=== PATIENT | female | born 2000 | race Caucasian/White ===

== ENCOUNTER 2020-04-29 18:49 | Emergency (ER) | payer MEDICAID ==
--- NOTE | 2020-04-29 20:48 | EDM.PDOC ---
ED HPI GENERAL MEDICAL PROBLEM - General Chief Complaint: Genitourinary Problem Stated Complaint: BURNING AND FREQUENT URINATION Time Seen by Provider: 04/29/20 19:21 Source of Information: Reports: Patient, RN Notes Reviewed History Limitations: Reports: No Limitations - History of Present Illness INITIAL COMMENTS - FREE TEXT/NARRATIVE: Patient is a 19-year-old female presenting to the emergency department with complaints of pelvic pressure, burning with urination and abnormal vaginal discharge which she describes as "limegreen". Patient states that about 1 week ago she had sexual intercourse with an individual who recently told her that he was treated for a sexually transmitted disease. She is not sure which disease it was, however states that he had discharge from his urethra. States he was given a shot and pills. Based on this he was likely treated for gonorrhea/, chlamydia. Patient symptoms began approximately 3 days ago. She is had no fever, chills, nausea, vomiting, or diarrhea. She does not think she could be but she is not sure. She is not currently on control. Lower Abdomen Pain Score (Numeric/FACES): 10 - Related Data Allergies Allergy/AdvReac Type Severity Reaction Status Date / Time trazodone Allergy Hives Verified 04/29/20 19:08 Home Meds: Home Meds . 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 Denies: Fever, Chills, Weakness HEENT: Reports: No Symptoms Respiratory: Reports: No Symptoms Cardiovascular: Reports: No Symptoms Endocrine: Reports: No Symptoms GI/Abdominal: Reports: No Symptoms. Denies: Abdominal Pain, Diarrhea, Nausea, Vomiting : Reports: Discharge, Dysuria, Pain (Pelvic pressure). Denies: Hematuria, Irregular Menses Musculoskeletal: Reports: No Symptoms Skin: Reports: No Symptoms Neurological: Reports: No Symptoms Psychiatric: Reports: No Symptoms Hematologic/Lymphatic: Reports: No Symptoms Immunologic: Reports: No Symptoms ED EXAM, RENAL/ - Physical Exam Exam: See Below General Appearance: Alert, WD/WN, No Apparent Distress Respiratory/Chest: No Respiratory Distress, Lungs Clear, Normal Breath Sounds, No Accessory Muscle Use, Chest Non-Tender Cardiovascular: Normal Peripheral Pulses, Regular Rate, Rhythm, No Edema, No Gallop, No JVD, No Murmur, No Rub GI/Abdominal: Normal Bowel Sounds, Soft, Non-Tender, No Organomegaly, No Distention, No Abnormal Bruit, No Mass (Female) Exam: Normal External Exam, Normal Speculum Exam. No: Cervical Fluid, Cervical Lesions, Cervix Motion Tenderness, Vaginal Bleeding, Vaginal Discharge Neurological: Alert, Oriented, CN II-XII Intact, Normal Cognition, Normal Gait, Normal Reflexes, No Motor/Sensory Deficits Psychiatric: Normal Affect, Normal Mood Skin Exam: Warm, Dry, Intact, Normal Color, No Rash Course - Vital Signs Last Recorded V/S: Last Vital Signs Temp 97.9 F 04/29/20 19:04 Pulse 99 04/29/20 19:04 Resp 16 04/29/20 19:04 BP 121/81 04/29/20 19:04 Pulse Ox 98 04/29/20 19:04 - Orders/Labs/Meds Labs: Laboratory Tests 04/29/20 04/29/20 04/29/20 Range/Units 19:00 19:00 20:35 Urine Color Yellow (Yellow) Urine Appearance Clear (Clear) Urine pH 6.0 (5.0-8.0) Ur Specific [place] 1.025 (1.005-1.030) Urine Protein Negative (Negative) Urine Glucose (UA) Negative (Negative) Urine Ketones Negative (Negative) Urine Occult Blood 1+ H (Negative) Urine Nitrite Negative (Negative) Urine Bilirubin Negative (Negative) Urine Urobilinogen 0.2 (0.2-1.0) Ur Leukocyte Esterase Negative (Negative) Urine RBC 10-20 H (0-5) /hpf Urine WBC 0-5 (0-5) /hpf Ur Squamous Epith Cells 20-30 H (0-5) /hpf Urine Bacteria Rare (FEW) /hpf Urine Mucus Rare (FEW) /hpf Urine HCG, Qual Negative (NEGATIVE) C trachomatis DNA (PCR) Not detected N gonorrhoeae DNA (PCR) Not detected - Re-Assessments/Exams Free Text/Narrative Re-Assessment/Exam: Patient is a 19-year-old female presenting to the emergency department with complaints of pelvic pressure, burning with urination, and abnormal vaginal discharge which she describes as "limegreen" in color. She states that she had intercourse with an individual 1 week ago who later notified her that he was experiencing urethral drainage and tested positive for sexually transmitted disease. She is uncertain what disease it was, however states that he received a shot and a pill indicating it was likely gonorrhea or chlamydia. I have ordered urinalysis, urine hCG, wet prep, and a GC chlamydia. Wet prep and GC c hlamydia will be collected during pelvic exam. 04/29/20 22:18 Urinalysis was negative for infection. Wet prep, GC/Chlamydia were all negative. Pelvic exam revealed no cervical motion or adnexal tenderness. HCG was negative. Pt advised to monitor s/s and f/u if do not improve over the next few days. Discharge instructions as documented. Departure - Departure Time of Disposition: 22:47 Disposition: Home, Self-Care 01 Condition: Good Clinical Impression: Dysuria, Vaginal discharge - Discharge Information *PRESCRIPTION DRUG MONITORING PROGRAM REVIEWED*: No *COPY OF PRESCRIPTION DRUG MONITORING REPORT IN PATIENT CHIQUI: No Instructions: Dysuria Referrals: PCP,None [Primary Care Provider] - Forms: ED Department Discharge Additional Instructions: You were seen in the emergency department today for burning with urination, abnormal vaginal discharge and pelvic pressure. Your workup included urinalysis, test, a wet prep, and gonorrhea and chlamydia testing. Your workup was found to be normal. You do not have a urinary tract infection. you are not , you do not have gonnorea, chlamydia, trichomoniasis, yeast infection, or bacterial vaginosis. Recommend that you monitor your symptoms. If they do not improve over the next few days or you experience any new or worsening symptoms of concern, please follow-up in the clinic or return to the ER as needed. Sepsis Event Note (ED) - Evaluation Sepsis Screening Result: No Definite Risk
[2020-04-29 22:17] LABS: C. TRACHOMATIS BY PCR NOT DETECTED; N. GONORRHOEAE BY PCR NOT DETECTED
== END 2020-04-29 22:54 | disposition home or self-care (01) ==
LOC: JD.ED 18:49
DX: N89.8 Other specified noninflammatory disorders of vagina (principal); R30.0 Dysuria; J45.909 Unspecified asthma, uncomplicated; Z88.8 Allergy status to other drugs, medicaments and biological substances
CPT/HCPCS: 81001; 81025; 87210; 87491; 87591; 87808; 99282; 99284

== ENCOUNTER 2021-01-25 16:39 | Inpatient (IN) | payer MEDICAID ==
[2021-01-25] MEDS ORDERED: Lidocaine 1% 50 ML MDV INJECT PRN (17:40)
[2021-01-25] MEDS ORDERED: Nalbuphine 10 MG/1 ML Vial IVPUSH PRN (17:40)
[2021-01-25] MEDS ORDERED: Sodium Chloride 0.9% 10 ML Syringe FLUSH PRN (17:40)
[2021-01-25] MEDS ORDERED: Oxytocin/Lactated Ringers 10 UNIT/1,000 ML BAG IV SCH (17:45)
[2021-01-25] MEDS ORDERED: Ampicillin 2 GM in Sodium Chloride 0.9% 100 ML IV ONE (20:00)
[2021-01-25] MEDS: Lactated Ringers 1,000 ML IV SCH (20:30)
[2021-01-25] MEDS: Oxytocin/Lactated Ringers 10 UNIT/1,000 ML BAG IV SCH (22:27)
[2021-01-25] MEDS ORDERED: diphenhydrAMINE 50 MG/ML SDV IVPUSH PRN (23:03)
[2021-01-26] MEDS: Ampicillin 1 GM in Sodium Chloride 0.9% 100 ML IV SCH ×5 (00:34→20:23)
[2021-01-26] MEDS ORDERED: Acetaminophen 325 MG Tab PO PRN (03:26)
[2021-01-26] MEDS ORDERED: diphenhydrAMINE 50 MG/ML SDV IVPUSH PRN (09:09)
[2021-01-26] MEDS ORDERED: ePHEDrine 50 MG/ML SDV IVPUSH PRN (09:09)
[2021-01-26] MEDS ORDERED: fentaNYL 100 MCG/2 ML SDV EPIDUR PRN (09:09)
[2021-01-26] MEDS ORDERED: Bupivacaine/fentaNYL/NS 100 ML Bag EPIDUR PRN (09:09)
[2021-01-26] MEDS: Lactated Ringers 1,000 ML IV SCH ×2 (09:34→11:09)
--- NOTE | 2021-01-26 09:40 | PCM.PREANE ---
Preanesthetic Assessment - Procedure Proposed Procedure: Epidural - Anesthesia/Transfusion/Family Hx Anesthesia History: No Prior Anesthesia Family History of Anesthesia Reaction: No Transfusion History: No Prior Transfusion(s) - Review of Systems General: Fatigue, Malaise Pulmonary: No Symptoms Cardiovascular: No Symptoms Gastrointestinal: Abdominal Pain (labor) Neurological: No Symptoms Other: Reports: None - Physical Assessment Vital Signs: Last Vital Signs Temp 37.4 C 01/25/21 17:04 Pulse 68 01/26/21 07:30 Resp 15 01/25/21 17:00 BP 124/73 01/26/21 06:02 Pulse Ox 98 01/25/21 17:00 Height: 1.63 m Weight: 102.058 kg ASA Class: 2 Mental Status: Alert & Oriented x3 Airway Class: Mallampati = 2 Thyro-Mental Finger Breadths: 2 Mouth Opening Finger Breadths: 2 ROM/Head Extension: Full Lungs: Clear to Auscultation, Normal Respiratory Effort Cardiovascular: Regular Rate, Regular Rhythm - Lab Values: Laboratory Last Values WBC 9.72 K/mm3 (3.98-10.04) 01/25/21 18:08 RBC 3.86 M/mm3 (3.98-5.22) L 01/25/21 18:08 Hgb 11.6 gm/dl (11.2-15.7) 01/25/21 18:08 Hct 34.7 % (34.1-44.9) 01/25/21 18:08 MCV 89.9 fl (79.4-94.8) 01/25/21 18:08 MCH 30.1 pg (25.6-32.2) 01/25/21 18:08 MCHC 33.4 g/dl (32.2-35.5) 01/25/21 18:08 RDW Std Deviation 43.2 fL (36.4-46.3) 01/25/21 18:08 Plt Count 252 K/mm3 (182-369) 01/25/21 18:08 MPV 9.4 fl (9.4-12.3) 01/25/21 18:08 Neut % (Auto) 66.5 % (34.0-71.1) 01/25/21 18:08 Lymph % (Auto) 20.6 % (19.3-51.7) 01/25/21 18:08 [place] % (Auto) 8.8 % (4.7-12.5) 01/25/21 18:08 Eos % (Auto) 3.2 (0.7-5.8) 01/25/21 18:08 Baso % (Auto) 0.3 % (0.1-1.2) 01/25/21 18:08 Neut # (Auto) 6.46 K/mm3 (1.56-6.13) H 01/25/21 18:08 Lymph # (Auto) 2.00 K/mm3 (1.18-3.74) 01/25/21 18:08 [place] # (Auto) 0.86 K/mm3 (0.24-0.36) H 01/25/21 18:08 Eos # (Auto) 0.31 K/mm3 (0.04-0.36) 01/25/21 18:08 Baso # (Auto) 0.03 K/mm3 (0.01-0.08) 01/25/21 18:08 Urine Opiates Screen Negative (QCKWNL=614) 01/25/21 18:45 Ur Buprenorphine Scrn Negative (CUTOFF=10) 01/25/21 18:45 Ur Oxycodone Screen Negative (BWX4LF=477) 01/25/21 18:45 Urine Methadone Screen Negative (STQETS=678) 01/25/21 18:45 Ur Propoxyphene Screen Negative (BEUYTU=288) 01/25/21 18:45 Ur Barbiturates Screen Negative (QRDSJC=318) 01/25/21 18:45 Ur Tricyclics Screen Negative (RCSSWU=274) 01/25/21 18:45 Ur Phencyclidine Scrn Negative (CUTOFF=25) 01/25/21 18:45 Ur Amphetamine Screen Negative (EDRWXI=392) 01/25/21 18:45 U Methamphetamines Scrn Negative (WQDQYZ=831) 01/25/21 18:45 U Benzodiazepines Scrn Negative (SSJSDK=261) 01/25/21 18:45 U Cocaine Metab Screen Negative (FEMYKK=460) 01/25/21 18:45 U Marijuana (THC) Screen Presumptive positive (CUTOFF=50) H 01/25/21 18:45 RPR Non-reactive (NONREACTIVE) 01/25/21 18:08 SARS-CoV-2 RNA (CALLIE) Negative (NEGATIVE) 01/25/21 18:40 - Allergies Allergies/Adverse Reactions: Allergies Allergy/AdvReac Type Severity Reaction Status Date / Time trazodone Allergy Hives Verified 01/24/21 07:06 - Anesthesia Plan Pre-Op Medication Ordered: None - Acknowledgements Anesthesia Type Planned: Epidural Pt an Appropriate Candidate for the Planned Anesthesia: Yes Alternatives and Risks of Anesthesia Discussed w Pt/Guardian: Yes Pt/Guardian Understands and Agrees with Anesthesia Plan: Yes PreAnesthesia Questionnaire HEENT History: Reports: None Cardiovascular History: Reports: None Respiratory History: Reports: Asthma Gastrointestinal History: Reports: GERD, Other (See Below) Other Gastrointestinal History: Cholestasis Genitourinary History: Reports: None CAR MOVER 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: 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 (See Below) Other OB/BYN History: Cholestasis in Musculoskeletal History: Reports: None Neurological History: Reports: None Psychiatric History: Reports: Bipolar, Depression Endocrine/Metabolic History: Reports: None Hematologic History: Reports: None Immunologic History: Reports: None Oncologic (Cancer) History: Reports: None Dermatologic History: Reports: None - Infectious Disease History Infectious Disease History: Reports: None - Past Surgical History Head Surgeries/Procedures: Reports: None - SUBSTANCE USE Tobacco Use Status *Q: Former Tobacco User Tobacco Use Within Last Twelve Months: Cigarettes Recreational Drug Use History: Yes Recreational Drug Type: Reports: Marijuana/Hashish - HOME MEDS Home Medications: Home Meds Pnv No.95/Ferrous Fum/Folic AC [ Vitamin Tablet] 1 each PO DAILY 01/25/21 [History] - CURRENT (IN HOUSE) MEDS Current Meds: Current Medications Acetaminophen (Acetaminophen 325 Mg Tab) 650 mg PO Q4H PRN PRN Reason: Headache/Pain Last Admin: 01/26/21 03:32 Dose: 650 mg Documented by: Diphenhydramine HCl (Diphenhydramine 50 Mg/Ml Sdv) 25 mg IVPUSH Q6H PRN PRN Reason: Itching Last Admin: 01/25/21 23:21 Dose: 25 mg Documented by: Diphenhydramine HCl (Diphenhydramine 50 Mg/Ml Sdv) 25 mg IVPUSH Q6H PRN PRN Reason: pruritis Ephedrine Sulfate (Ephedrine 50 Mg/Ml Sdv) 5 mg IVPUSH ASDIRECTED PRN PRN Reason: Hypotension Fentanyl (Fentanyl 100 Mcg/2 Ml Sdv) 100 mcg EPIDUR Q3H PRN PRN Reason: Pain Last Admin: 01/26/21 09:18 Dose: 100 mcg Documented by: Fentanyl/Bupivacaine HCl (Bupivacaine/Fentanyl/Ns 100 Ml Bag) 100 ml EPIDUR ASDIRECTED PRN PRN Reason: Pain Last Admin: 01/26/21 09:15 Dose: 100 ml Documented by: Lactated Ringer's (Ringers, Lactated) 1,000 mls @ 100 mls/hr IV ASDIRECTED ANTONIETA Last Admin: 01/26/21 09:34 Dose: 999 mls/hr Documented by: Oxytocin/Lactated Ringer's (Pitocin In Lr 10 Units/1,000 Ml) 10 unit in 1,000 mls @ 12 mls/hr IV TITRATE ANTONIETA; Protocol Last Titration: 01/26/21 08:44 Dose: 10 munits/min, 60 mls/hr Documented by: Oxytocin/Lactated Ringer's (Pitocin In Lr 10 Units/1,000 Ml) 10 unit in 1,000 mls @ 500 mls/hr IV .CONTINUOUS ANTONIETA Ampicillin Sodium 1 gm/ Sodium (Chloride) 100 mls @ 200 mls/hr IV Q4H ANTONIETA Last Admin: 01/26/21 08:05 Dose: 200 mls/hr Documented by: Lidocaine HCl (Lidocaine 1% 50 Ml Mdv) 50 ml INJECT ONETIME PRN PRN Reason: Breakthrough Pain Nalbuphine HCl (Nalbuphine 10 Mg/1 Ml Vial) 10 mg IVPUSH Q2H PRN PRN Reason: Pain Last Admin: 01/26/21 08:38 Dose: 10 mg Documented by: Sodium Chloride (Sodium Chloride 0.9% 10 Ml Syringe) 10 ml FLUSH ASDIRECTED PRN PRN Reason: Keep Vein Open Discontinued Medications Ampicillin Sodium 2 gm/ Sodium (Chloride) 100 mls @ 200 mls/hr IV ONETIME ONE Stop: 01/25/21 20:29 Last Admin: 01/25/21 20:30 Dose: 200 mls/hr Documented by:
[2021-01-26] MEDS: Oxytocin/Lactated Ringers 10 UNIT/1,000 ML BAG IV SCH (11:08)
--- NOTE | 2021-01-26 13:03 | PCM.LDHP ---
L&D History of Present Illness - General Date of Service: 01/25/21 Admit Problem/Dx: Patient Status Order with Admit Dx/Problem 01/25/21 17:40 Patient Status [ADT] Routine Admission Diagnosis/Problem Admission Diagnosis/Problem - History of Present Illness Introduction:: 20 year old at 37w5d here for induction of labor for cholestasis of . 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: 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 (See Below) Other OB/BYN History: Cholestasis in Musculoskeletal History: Reports: None Neurological History: Reports: None Psychiatric History: Reports: Bipolar, Depression Endocrine/Metabolic History: Reports: None Hematologic History: Reports: None Immunologic History: Reports: None Oncologic (Cancer) History: Reports: None Dermatologic History: Reports: None - Infectious Disease History Infectious Disease History: Reports: None - Past Surgical History Head Surgeries/Procedures: Reports: None Social & Family History - Tobacco Use Tobacco Use Status *Q: Former Tobacco User Packs/Tins Daily: 1 Used Tobacco, but Quit: Yes Month/Year Tobacco Last Used: 05/2019 - Caffeine Use Caffeine Use: Reports: None - Recreational Drug Use Recreational Drug Use: Yes Drug Use in Last 12 Months: Yes Recreational Drug Type: Reports: Marijuana/Hashish Other Recreational Drug Type: Pt states she quit Marjuana in May of this year. Pt UDS positive for marijuana. H&P Review of Systems - Review of Systems: Review Of Systems: See Below General: Reports: No Symptoms HEENT: Reports: No Symptoms Pulmonary: Reports: No Symptoms Cardiovascular: Reports: No Symptoms Gastrointestinal: Reports: No Symptoms Genitourinary: Reports: No Symptoms Musculoskeletal: Reports: No Symptoms Skin: Reports: Pruritis Psychiatric: Reports: No Symptoms Neurological: Reports: No Symptoms Hematologic/Lymphatic: Reports: No Symptoms Immunologic: Reports: No Symptoms L&D Exam - Exam Exam: See Below - Vital Signs Vital Signs: Last Vital Signs Temp 37.4 C 01/25/21 17:04 Pulse 77 01/26/21 12:30 Resp 15 01/25/21 17:00 BP 124/73 01/26/21 06:02 Pulse Ox 100 01/26/21 11:00 Weight: 102.058 kg - OB Specific Contraction Intensity: Irritability Movement: Active Heart Tones: Present Heart Rate (FHR) Variability: Moderate (6-25 bpm) Presentation: Vertex - Miller Score Miller Score Cervix Position: Midposition Miller Score Consistency: Soft Miller Score Effacement: 51-70% Miller Score Dilation: 3-4 cm Miller Score 's Station: -2 Miller Score Total: 8 - Exam General: Alert, Oriented HEENT: PERRLA, Conjunctiva Clear, EACs Clear, EOMI, Hearing Intact, Mucosa Moist & [place], Nares Patent, Normal Nasal Septum, Posterior Pharynx Clear, TMs Clear Neck: Supple, Trachea Midline Lungs: Clear to Auscultation, Normal Respiratory Effort Cardiovascular: Regular Rate, Regular Rhythm GI/Abdominal Exam: Normal Bowel Sounds, Soft, Non-Tender, No Organomegaly, No Distention, No Abnormal Bruit, No Mass, Pelvis Stable Rectal Exam: Normal Exam, Normal Rectal Tone Back Exam: Normal Inspection, Full Range of Motion Extremities: Normal Inspection, Normal Range of Motion, Non-Tender, No Pedal Edema, Normal Capillary Refill Skin: Warm, Dry, Intact Neurological: Cranial Nerves Intact, Reflexes Equal Bilateral Psychiatric: Alert, Normal Affect, Normal Mood - Patient Data Lab Results Last 24 hrs: Laboratory Results - last 24 hr 01/25/21 01/25/21 01/25/21 Range/Units 16:45 18:08 18:08 WBC 9.72 (3.98-10.04) K/mm3 RBC 3.86 L (3.98-5.22) M/mm3 Hgb 11.6 (11.2-15.7) gm/dl Hct 34.7 (34.1-44.9) % MCV 89.9 (79.4-94.8) fl MCH 30.1 (25.6-32.2) pg MCHC 33.4 (32.2-35.5) g/dl RDW Std Deviation 43.2 (36.4-46.3) fL Plt Count 252 (182-369) K/mm3 MPV 9.4 (9.4-12.3) fl Neut % (Auto) 66.5 (34.0-71.1) % Lymph % (Auto) 20.6 (19.3-51.7) % [place] % (Auto) 8.8 (4.7-12.5) % Eos % (Auto) 3.2 (0.7-5.8) Baso % (Auto) 0.3 (0.1-1.2) % Neut # (Auto) 6.46 H (1.56-6.13) K/mm3 Lymph # (Auto) 2.00 (1.18-3.74) K/mm3 [place] # (Auto) 0.86 H (0.24-0.36) K/mm3 Eos # (Auto) 0.31 (0.04-0.36) K/mm3 Baso # (Auto) 0.03 (0.01-0.08) K/mm3 Urine Opiates Screen Negative (CAFBFZ=579) Ur Buprenorphine Scrn Negative (CUTOFF=10) Ur Oxycodone Screen Negative (NMV8CU=901) Urine Methadone Screen Negative (ZMBBZV=639) Ur Propoxyphene Screen Negative (FFBTSN=918) Ur Barbiturates Screen Negative (CLBILZ=488) Ur Tricyclics Screen Negative (EKGIAX=448) Ur Phencyclidine Scrn Negative (CUTOFF=25) Ur Amphetamine Screen Negative (IRAGUM=272) U Methamphetamines Scrn Negative (AWHWRY=509) U Benzodiazepines Scrn Negative (WLBUMY=007) U Cocaine Metab Screen Negative (TAUOBU=520) U Marijuana (THC) Screen Presumptive positive H (CUTOFF=50) RPR Non-reactive (NONREACTIVE) SARS-CoV-2 RNA (CALLIE) (NEGATIVE) 01/25/21 01/25/21 Range/Units 18:40 18:45 WBC (3.98-10.04) K/mm3 RBC (3.98-5.22) M/mm3 Hgb (11.2-15.7) gm/dl Hct (34.1-44.9) % MCV (79.4-94.8) fl MCH (25.6-32.2) pg MCHC (32.2-35.5) g/dl RDW Std Deviation (36.4-46.3) fL Plt Count (182-369) K/mm3 MPV (9.4-12.3) fl Neut % (Auto) (34.0-71.1) % Lymph % (Auto) (19.3-51.7) % [place] % (Auto) (4.7-12.5) % Eos % (Auto) (0.7-5.8) Baso % (Auto) (0.1-1.2) % Neut # (Auto) (1.56-6.13) K/mm3 Lymph # (Auto) (1.18-3.74) K/mm3 [place] # (Auto) (0.24-0.36) K/mm3 Eos # (Auto) (0.04-0.36) K/mm3 Baso # (Auto) (0.01-0.08) K/mm3 Urine Opiates Screen Negative (AJVLMH=636) Ur Buprenorphine Scrn Negative (CUTOFF=10) Ur Oxycodone Screen Negative (JZD1QI=256) Urine Methadone Screen Negative (CYZIXQ=443) Ur Propoxyphene Screen Negative (VXRJIX=007) Ur Barbiturates Screen Negative (NTCIRA=579) Ur Tricyclics Screen Negative (NOLQLK=077) Ur Phencyclidine Scrn Negative (CUTOFF=25) Ur Amphetamine Screen Negative (HOXSHC=745) U Methamphetamines Scrn Negative (XJPDEH=412) U Benzodiazepines Scrn Negative (BIMSFL=933) U Cocaine Metab Screen Negative (RQHMFJ=863) U Marijuana (THC) Screen Presumptive positive H (CUTOFF=50) RPR (NONREACTIVE) SARS-CoV-2 RNA (CALLIE) Negative (NEGATIVE) Result Diagrams: 01/25/21 18:08 Problem List Initiated/Reviewed/Updated: Yes Orders Last 24hrs: Active Orders 24 hr Category Date Time Status Patient Status [ADT] Routine ADT 01/25/21 17:40 Active Activity as Tolerated [RC] PFP Care 01/25/21 17:40 Active Communication Order [RC] ASDIRECTED Care 01/25/21 17:40 Active Communication Order [RC] ASDIRECTED Care 01/26/21 09:09 Active Cooling Warming Measures [RC] ASDIRECTED Care 01/26/21 09:09 Active Heart Tones [RC] ASDIRECTED Care 01/25/21 17:41 Active Notify Provider [RC] ASDIRECTED Care 01/26/21 09:09 Active Notify Provider [RC] ASDIRECTED Care 01/26/21 09:09 Active Notify Provider [RC] PFP Care 01/25/21 17:40 Active Notify Provider [RC] PRN Care 01/25/21 17:40 Active Oxygen Therapy [RC] ASDIRECTED Care 01/26/21 09:09 Active Peripheral IV Care [RC] Q4HR Care 01/25/21 17:41 Active Pulse Oximetry [RC] ASDIRECTED Care 01/26/21 09:09 Active Urinary Catheter Assessment [RC] ASDIRECTED Care 01/25/21 17:40 Active Vital Signs [RC] 03,,, Care 01/25/21 17:40 Active Vital Signs [RC] PER UNIT ROUTINE Care 01/25/21 17:04 Active Consult to Case Management/Pipeline Technician [CONS] Cons 01/26/21 10:51 Active Routine Regular Diet [DIET] Diet 01/25/21 Dinner Active BLOOD BANK HOLD SPECIMEN [BBK] Routine Lab 01/25/21 17:40 Ordered CANNABINOID (THC) CONFIRM, UR Routine Lab 01/25/21 18:45 Received Acetaminophen [TylenoL] Med 01/26/21 03:26 Active 650 mg PO Q4H PRN Ampicillin 1 gm Med 01/26/21 00:00 Active Sodium Chloride 0.9% [Normal Saline] 100 ml IV Q4H Bupivacaine/fentaNYL/NS [fentaNYL/Bupivacaine/NS 2 MCG- Med 01/26/21 09:09 Active 0.125% 100 ML] 100 ml EPIDUR ASDIRECTED PRN Lactated Ringers [Ringers, Lactated] 1,000 ml Med 01/25/21 17:45 Active IV ASDIRECTED Lidocaine 1% [Xylocaine 1%] Med 01/25/21 17:40 Active 50 ml INJECT ONETIME PRN Nalbuphine [Nubain] Med 01/25/21 17:40 Active 10 mg IVPUSH Q2H PRN Oxytocin/Lactated Ringers [Pitocin in LR 10 Units/1,000 Med 01/25/21 17:45 Active ML] 10 unit in 1,000 ml IV .CONTINUOUS Oxytocin/Lactated Ringers [Pitocin in LR 10 Units/1,000 Med 01/25/21 17:45 Active ML] 10 unit in 1,000 ml IV TITRATE Sodium Chloride 0.9% [Saline Flush] Med 01/25/21 17:40 Active 10 ml FLUSH ASDIRECTED PRN diphenhydrAMINE [Benadryl] Med 01/25/21 23:03 Active 25 mg IVPUSH Q6H PRN diphenhydrAMINE [Benadryl] Med 01/26/21 09:09 Active 25 mg IVPUSH Q6H PRN ePHEDrine [ePHEDrine sulfate] Med 01/26/21 09:09 Active 5 mg IVPUSH ASDIRECTED PRN fentaNYL [Sublimaze] Med 01/26/21 09:09 Active 100 mcg EPIDUR Q3H PRN Electronic Heart Tones Ext w TOCO [WOMSER] Oth 01/25/21 17:40 Ordered Routine Electronic Heart Tones Internal [WOMSER] Per Unit Oth 01/25/21 17:40 Ordered Routine Peripheral IV Insertion Adult [OM.PC] Routine Oth 01/25/21 17:40 Ordered Resuscitation Status Routine Resus Stat 01/25/21 17:04 Ordered Medication Orders Acetaminophen (Acetaminophen 325 Mg Tab) 650 mg PO Q4H PRN PRN Reason: Headache/Pain Last Admin: 01/26/21 03:32 Dose: 650 mg Documented by: JOSÉ MIGUEL Diphenhydramine HCl (Diphenhydramine 50 Mg/Ml Sdv) 25 mg IVPUSH Q6H PRN PRN Reason: Itching Last Admin: 01/25/21 23:21 Dose: 25 mg Documented by: CRONCHE Diphenhydramine HCl (Diphenhydramine 50 Mg/Ml Sdv) 25 mg IVPUSH Q6H PRN PRN Reason: pruritis Ephedrine Sulfate (Ephedrine 50 Mg/Ml Sdv) 5 mg IVPUSH ASDIRECTED PRN PRN Reason: Hypotension Fentanyl (Fentanyl 100 Mcg/2 Ml Sdv) 100 mcg EPIDUR Q3H PRN PRN Reason: Pain Last Admin: 01/26/21 09:18 Dose: 100 mcg Documented by: ZANDRA Fentanyl/Bupivacaine HCl (Bupivacaine/Fentanyl/Ns 100 Ml Bag) 100 ml EPIDUR ASDIRECTED PRN PRN Reason: Pain Last Admin: 01/26/21 09:15 Dose: 100 ml Documented by: ZANDRA Lactated Ringer's (Ringers, Lactated) 1,000 mls @ 100 mls/hr IV ASDIRECTED ANTONIETA Last Admin: 01/26/21 11:09 Dose: 100 mls/hr Documented by: Infusion: 01/26/21 11:09 Dose: 100 mls/hr Documented by: Infusion: 01/26/21 10:10 Dose: 100 mls/hr Documented by: Admin: 01/26/21 09:34 Dose: 999 mls/hr Documented by: Infusion: 01/26/21 09:00 Dose: 999 mls/hr Documented by: Admin: 01/25/21 20:30 Dose: 100 mls/hr Documented by: CRONLUIS ALFREDO Oxytocin/Lactated Ringer's (Pitocin In Lr 10 Units/1,000 Ml) 10 unit in 1,000 mls @ 12 mls/hr IV TITRATE ANTONIETA; Protocol Last Titration: 01/26/21 11:36 Dose: 10 munits/min, 60 mls/hr Documented by: Admin: 01/26/21 11:08 Dose: 8 munits/min, 48 mls/hr Documented by: Titration: 01/26/21 11:08 Dose: 8 munits/min, 48 mls/hr Documented by: Titration: 01/26/21 10:00 Dose: 8 munits/min, 48 mls/hr Documented by: Titration: 01/26/21 09:30 Dose: 6 munits/min, 36 mls/hr Documented by: Titration: 01/26/21 09:15 Dose: 4 munits/min, 24 mls/hr Documented by: Titration: 01/26/21 09:00 Dose: 6 munits/min, 36 mls/hr Documented by: Titration: 01/26/21 08:44 Dose: 10 munits/min, 60 mls/hr Documented by: Titration: 01/26/21 08:29 Dose: 15 munits/min, 90 mls/hr Documented by: Titration: 01/26/21 06:30 Dose: 20 munits/min, 120 mls/hr Documented by: Titration: 01/26/21 04:30 Dose: 18 munits/min, 108 mls/hr Documented by: JOSÉ MIGUEL Titration: 01/26/21 03:30 Dose: 16 munits/min, 96 mls/hr Documented by: JOSÉ MIGUEL Titration: 01/26/21 02:35 Dose: 14 munits/min, 84 mls/hr Documented by: JOSÉ MIGUEL Titration: 01/26/21 02:00 Dose: 12 munits/min, 72 mls/hr Documented by: JOSÉ MIGUEL Titration: 01/26/21 01:15 Dose: 10 munits/min, 60 mls/hr Documented by: JOSÉ MIGUEL Titration: 01/26/21 00:36 Dose: 8 munits/min, 48 mls/hr Documented by: JOSÉ MIGUEL Titration: 01/26/21 00:00 Dose: 6 munits/min, 36 mls/hr Documented by: JOSÉ MIGUEL Titration: 01/25/21 23:22 Dose: 4 munits/min, 24 mls/hr Documented by: JOSÉ MIGUEL Admin: 01/25/21 22:27 Dose: 2 munits/min, 12 mls/hr Documented by: JOSÉ MIGUEL Oxytocin/Lactated Ringer's (Pitocin In Lr 10 Units/1,000 Ml) 10 unit in 1,000 mls @ 500 mls/hr IV .CONTINUOUS ANTONIETA Ampicillin Sodium 1 gm/ Sodium (Chloride) 100 mls @ 200 mls/hr IV Q4H ANTONIETA Last Admin: 01/26/21 11:39 Dose: 200 mls/hr Documented by: Infusion: 01/26/21 08:35 Dose: 200 mls/hr Documented by: Admin: 01/26/21 08:05 Dose: 200 mls/hr Documented by: Infusion: 01/26/21 04:48 Dose: 200 mls/hr Documented by: Admin: 01/26/21 04:18 Dose: 200 mls/hr Documented by: JOSÉ MIGUEL Infusion: 01/26/21 01:04 Dose: 200 mls/hr Documented by: JOSÉ MIGUEL Admin: 01/26/21 00:34 Dose: 200 mls/hr Documented by: JOSÉ MIGUEL Lidocaine HCl (Lidocaine 1% 50 Ml Mdv) 50 ml INJECT ONETIME PRN PRN Reason: Breakthrough Pain Nalbuphine HCl (Nalbuphine 10 Mg/1 Ml Vial) 10 mg IVPUSH Q2H PRN PRN Reason: Pain Last Admin: 01/26/21 08:38 Dose: 10 mg Documented by: ZANDRA Sodium Chloride (Sodium Chloride 0.9% 10 Ml Syringe) 10 ml FLUSH ASDIRECTED PRN PRN Reason: Keep Vein Open Assessment/Plan Comment:: Term . Given elevation of bile acids recommended induction between 37w and 38w6. Had planned for Thursday but patient came in complaining of decreased movement so decision was made to induce tonight. Pitocin. Monitor. Ampicillin for GBS. Anticipate unless otherwise indicated.
--- NOTE | 2021-01-26 13:04 | PCM.PNLD ---
Labor Progress Note - VS & Meds Vital Signs: Last Vital Signs Temp 37.4 C 01/25/21 17:04 Pulse 77 01/26/21 12:30 Resp 15 01/25/21 17:00 BP 124/73 01/26/21 06:02 Pulse Ox 100 01/26/21 11:00 Active Medications: Current Medications Acetaminophen (Acetaminophen 325 Mg Tab) 650 mg PO Q4H PRN PRN Reason: Headache/Pain Last Admin: 01/26/21 03:32 Dose: 650 mg Documented by: Diphenhydramine HCl (Diphenhydramine 50 Mg/Ml Sdv) 25 mg IVPUSH Q6H PRN PRN Reason: Itching Last Admin: 01/25/21 23:21 Dose: 25 mg Documented by: Diphenhydramine HCl (Diphenhydramine 50 Mg/Ml Sdv) 25 mg IVPUSH Q6H PRN PRN Reason: pruritis Ephedrine Sulfate (Ephedrine 50 Mg/Ml Sdv) 5 mg IVPUSH ASDIRECTED PRN PRN Reason: Hypotension Fentanyl (Fentanyl 100 Mcg/2 Ml Sdv) 100 mcg EPIDUR Q3H PRN PRN Reason: Pain Last Admin: 01/26/21 09:18 Dose: 100 mcg Documented by: Fentanyl/Bupivacaine HCl (Bupivacaine/Fentanyl/Ns 100 Ml Bag) 100 ml EPIDUR ASDIRECTED PRN PRN Reason: Pain Last Admin: 01/26/21 09:15 Dose: 100 ml Documented by: Lactated Ringer's (Ringers, Lactated) 1,000 mls @ 100 mls/hr IV ASDIRECTED ANTONIETA Last Admin: 01/26/21 11:09 Dose: 100 mls/hr Documented by: Oxytocin/Lactated Ringer's (Pitocin In Lr 10 Units/1,000 Ml) 10 unit in 1,000 mls @ 12 mls/hr IV TITRATE ANTONIETA; Protocol Last Titration: 01/26/21 11:36 Dose: 10 munits/min, 60 mls/hr Documented by: Oxytocin/Lactated Ringer's (Pitocin In Lr 10 Units/1,000 Ml) 10 unit in 1,000 mls @ 500 mls/hr IV .CONTINUOUS ANTONIETA Ampicillin Sodium 1 gm/ Sodium (Chloride) 100 mls @ 200 mls/hr IV Q4H ANTONIETA Last Admin: 01/26/21 11:39 Dose: 200 mls/hr Documented by: Lidocaine HCl (Lidocaine 1% 50 Ml Mdv) 50 ml INJECT ONETIME PRN PRN Reason: Breakthrough Pain Nalbuphine HCl (Nalbuphine 10 Mg/1 Ml Vial) 10 mg IVPUSH Q2H PRN PRN Reason: Pain Last Admin: 01/26/21 08:38 Dose: 10 mg Documented by: Sodium Chloride (Sodium Chloride 0.9% 10 Ml Syringe) 10 ml FLUSH ASDIRECTED PRN PRN Reason: Keep Vein Open Discontinued Medications Ampicillin Sodium 2 gm/ Sodium (Chloride) 100 mls @ 200 mls/hr IV ONETIME ONE Stop: 01/25/21 20:29 Last Admin: 01/25/21 20:30 Dose: 200 mls/hr Documented by: - Uterine Contractions Contraction Intensity: Irritability - Monitoring Heart Rate (FHR) Baseline: 145 Heart Rate (FHR) Variability: Moderate (6-25 bpm) - Vaginal Exam Dilation (cm): 3 Effacement (Percent): 60 Station: -2 - Labor Progress (Free Text) Labor Progress: Minimal progress. Uncomfortable with contractions. AROM clear fluid. Epidural prn Anticipate
--- NOTE | 2021-01-26 13:46 | PCM.SN.2 ---
- Free Text/Narrative Note: Stage I - Patient presented for induction of labor. Pitocin. Ampicillin for GBS. AROM. Progressed to complete with overall reassuring heart tones. Stage II - of viable male. Weight 6#14oz, 8/9 apgars at 1324. Head delivered in controlled manner over intact perineum. Body and shoulders atraumatically. To maternal abdomen. Cord clamped and cut. Cord blood collected. Stage III - of intact placenta. 3vc. EBL 175. No laceration. Time Documentation
[2021-01-26] MEDS ORDERED: Benzocaine/Menthol 20%-0.5% Spray 78 GM Cannister TOP PRN (16:30)
[2021-01-26] MEDS ORDERED: Witch Hazel Medicated Pads 40/Jar TOP PRN (16:30)
[2021-01-26] MEDS: Ibuprofen 600 MG Tab PO PRN (16:54)
[2021-01-26] MEDS ORDERED: Bupivacaine 0.25% 10 ML SDV ONE (19:00)
[2021-01-27] MEDS: Ibuprofen 600 MG Tab PO PRN ×3 (02:31→19:30)
--- NOTE | 2021-01-27 09:29 | PCM.PNPP ---
- General Info Date of Service: 01/27/21 Functional Status: Reports: Pain Controlled - Review of Systems General: Reports: No Symptoms HEENT: Reports: No Symptoms Pulmonary: Reports: No Symptoms Cardiovascular: Reports: No Symptoms Gastrointestinal: Reports: No Symptoms Genitourinary: Reports: No Symptoms Musculoskeletal: Reports: No Symptoms Skin: Reports: No Symptoms Neurological: Reports: No Symptoms Psychiatric: Reports: No Symptoms - General Info Date of Service: 01/27/21 - Patient Data Vital Signs - Most Recent: Last Vital Signs Temp 36.2 C 01/27/21 02:34 Pulse 71 01/27/21 02:34 Resp 16 01/27/21 02:34 BP 120/73 01/27/21 02:34 Pulse Ox 99 01/27/21 02:34 Weight - Most Recent: 102.058 kg I&O - Last 24 Hours: Intake & Output 01/26/21 01/27/21 01/27/21 22:59 06:59 14:59 Intake Total 5200 Balance 5200 Med Orders - Current: Current Medications Benzocaine/Menthol (Benzocaine/Menthol 20%-0.5% [place] 78 Gm Cannister) 0 gm TOP ASDIRECTED PRN PRN Reason: Perineal Comfort Measure Ibuprofen (Ibuprofen 600 Mg Tab) 600 mg PO Q6H PRN PRN Reason: Mild pain or fever Last Admin: 01/27/21 08:59 Dose: 600 mg Documented by: Raine Virgen (Raine Virgen Medicated Pads 40/Jar) 1 pad TOP ASDIRECTED PRN PRN Reason: Perineal Comfort Measure Discontinued Medications Acetaminophen (Acetaminophen 325 Mg Tab) 650 mg PO Q4H PRN PRN Reason: Headache/Pain Last Admin: 01/26/21 03:32 Dose: 650 mg Documented by: Diphenhydramine HCl (Diphenhydramine 50 Mg/Ml Sdv) 25 mg IVPUSH Q6H PRN PRN Reason: Itching Last Admin: 01/25/21 23:21 Dose: 25 mg Documented by: Diphenhydramine HCl (Diphenhydramine 50 Mg/Ml Sdv) 25 mg IVPUSH Q6H PRN PRN Reason: pruritis Ephedrine Sulfate (Ephedrine 50 Mg/Ml Sdv) 5 mg IVPUSH ASDIRECTED PRN PRN Reason: Hypotension Fentanyl (Fentanyl 100 Mcg/2 Ml Sdv) 100 mcg EPIDUR Q3H PRN PRN Reason: Pain Last Admin: 01/26/21 09:18 Dose: 100 mcg Documented by: Fentanyl/Bupivacaine HCl (Bupivacaine/Fentanyl/Ns 100 Ml Bag) 100 ml EPIDUR ASDIRECTED PRN PRN Reason: Pain Last Admin: 01/26/21 09:15 Dose: 100 ml Documented by: Lactated Ringer's (Ringers, Lactated) 1,000 mls @ 100 mls/hr IV ASDIRECTED ANTONIETA Last Admin: 01/26/21 11:09 Dose: 100 mls/hr Documented by: Oxytocin/Lactated Ringer's (Pitocin In Lr 10 Units/1,000 Ml) 10 unit in 1,000 mls @ 12 mls/hr IV TITRATE ANTONIETA; Protocol Last Titration: 01/26/21 15:00 Dose: 16.67 munits/min, 100.02 mls/hr Documented by: Oxytocin/Lactated Ringer's (Pitocin In Lr 10 Units/1,000 Ml) 10 unit in 1,000 mls @ 500 mls/hr IV .CONTINUOUS ANTONIETA Ampicillin Sodium 2 gm/ Sodium (Chloride) 100 mls @ 200 mls/hr IV ONETIME ONE Stop: 01/25/21 20:29 Last Admin: 01/25/21 20:30 Dose: 200 mls/hr Documented by: Ampicillin Sodium 1 gm/ Sodium (Chloride) 100 mls @ 200 mls/hr IV Q4H ANTONIETA Last Admin: 01/26/21 20:23 Dose: Not Given Documented by: Lidocaine HCl (Lidocaine 1% 50 Ml Mdv) 50 ml INJECT ONETIME PRN PRN Reason: Breakthrough Pain Nalbuphine HCl (Nalbuphine 10 Mg/1 Ml Vial) 10 mg IVPUSH Q2H PRN PRN Reason: Pain Last Admin: 01/26/21 08:38 Dose: 10 mg Documented by: Sodium Chloride (Sodium Chloride 0.9% 10 Ml Syringe) 10 ml FLUSH ASDIRECTED PRN PRN Reason: Keep Vein Open - Interaction Support Person: Significant Other - Recovery Exam Fundal Tone: Firm Fundal Level: At Umbilicus Fundal Placement: Midline Lochia Amount: Small Lochia Color: Rubra/Red Perineum Description: Intact, Minimal Bruising/Swelling Bladder Status: Voiding Urinary Elimination: Voided - Exam General: Alert, Oriented Neck: Supple Lungs: Normal Respiratory Effort Cardiovascular: Regular Rate, Regular Rhythm GI/Abdominal Exam: Soft, Non-Tender, No Distention Extremities: Normal Inspection, Normal Range of Motion, Non-Tender, No Pedal Edema, Normal Capillary Refill Skin: Warm, Dry, Intact Neurological: No New Focal Deficit Psy/Mental Status: Alert, Normal Affect, Normal Mood - Problem List Review Problem List Initiated/Reviewed/Updated: Yes - My Orders Last 24 Hours: My Active Orders 01/26/21 16:30 Benzocaine/Menthol [Dermoplast Pain Relief 20%-0.5% [place]] See Dose I nstructions TOP ASDIRECTED PRN Ibuprofen [Motrin] 600 mg PO Q6H PRN witch Cam [Tucks] 1 pad TOP ASDIRECTED PRN Heat Therapy [OM.PC] PRN 01/26/21 16:30 Activity as Tolerated [RC] PER UNIT ROUTINE Vital Signs [RC] 03,,, Assess Lochia [WOMSER] Per Unit Routine Assess Uterine Involution [WOMSER] Per Unit Routine Breast Pump [WOMSER] Per Unit Routine Medication Administration Instruction [OM.PC] Routine Perineal Care [OM.PC] Per Unit Routine Sitz Bath [OM.PC] Per Unit Routine 01/27/21 16:30 Heat Therapy [OM.PC] PRN - Assessment Assessment:: day 1. Doing well. Discharge tomorrow. Social work tomorrow.
--- NOTE | 2021-01-27 11:52 | PCM48HPAN ---
Post Anesthesia Note - EVALUATION WITHIN 48HRS OF ANESTHETIC Vital Signs in Normal Range: Yes Patient Participated in Evaluation: Yes Respiratory Function Stable: Yes Airway Patent: Yes Cardiovascular Function Stable: Yes Hydration Status Stable: Yes Pain Control Satisfactory: Yes Nausea and Vomiting Control Satisfactory: Yes Mental Status Recovered: Yes Vital Signs: Last Vital Signs Temp 36.2 C 01/27/21 09:02 Pulse 72 01/27/21 09:02 Resp 16 01/27/21 09:02 BP 104/75 01/27/21 09:02 Pulse Ox 99 01/27/21 09:02 - COMMENTS/OBSERVATIONS Free Text/Narrative:: no anesthesia complications noted
[2021-01-27] MEDS: Acetaminophen 325 MG Tab PO PRN (14:00)
[2021-01-28] MEDS: Ibuprofen 600 MG Tab PO PRN (01:44)
[2021-01-28] MEDS: Acetaminophen 325 MG Tab PO PRN (05:56)
--- NOTE | 2021-01-28 10:22 | PCM.DCSUM1 ---
Discharge Summary - Hospital Course Free Text/Narrative:: Stage I - Patient presented for induction of labor. Pitocin. Ampicillin for GBS. AROM. Progressed to complete with overall reassuring heart tones. Stage II - of viable male. Weight 6#14oz, 8/9 apgars at 1324. Head delivered in controlled manner over intact perineum. Body and shoulders atraumatically. To maternal abdomen. Cord clamped and cut. Cord blood collected. Stage III - of intact placenta. 3vc. EBL 175. No laceration. Diagnosis: Stroke: No - Discharge Data Discharge Date: 01/28/21 Discharge Disposition: Home, Self-Care 01 Condition: Good - Referral to Home Health Primary Care Physician: Lyssa Granados MD - Patient Instructions Diet: Usual Diet as Tolerated, Regular Diet as Tolerated (Nursing diet with increased calories and calcium as recommended) Activity: As Tolerated (No intercourse or tampons until bleeding resolves), No Strenuous Activities Driving: May Drive Today Showering/Bathing: May Shower Wound/Incision Care: Keep Operative Site/Wound Site Clean and Dry, Change Dressing Daily, Do NOT Change Dressing Notify Provider of: Fever, Increased Pain, Swelling and Redness, Drainage, Nausea and/or Vomiting - Discharge Plan *PRESCRIPTION DRUG MONITORING PROGRAM REVIEWED*: No *COPY OF PRESCRIPTION DRUG MONITORING REPORT IN PATIENT CHIQUI: No Home Medications: Home Meds Pnv No.95/Ferrous Fum/Folic AC [ Vitamin Tablet] 1 each PO DAILY 01/25/21 [History] Patient Handouts: Care After Vaginal Delivery Referrals: Zehra Sanchez MD [Physician] - (2 weeks) - Discharge Summary/Plan Comment DC Time >30 min.: No Total # of Minutes for Discharge Time: 10 Discharge Summary/Plan Comment: Discharge instructions: 1. Discharge home 2. Diet, activity and follow-up discussed with patient. Recommend nursing diet with increased calories and calcium. 3. Precautions given concern increased pain, bleeding, temperature, signs/symptoms of DVT/PE. 4. Medications per home medication was printed, discussed with and given to the patient. 5. [facility] to [facility] 2 weeks. Diagnosis: Term -delivered Condition: Good - Patient Data Vitals - Most Recent: Last Vital Signs Temp 36.6 C 01/28/21 03:36 Pulse 63 09/20/21 03:36 Resp 12 01/28/21 03:36 BP 108/51 L 01/28/21 03:36 Pulse Ox 98 01/28/21 03:36 Weight - Most Recent: 102.058 kg I&O - Last 24 hours: Intake & Output 01/27/21 01/28/21 01/28/21 22:59 06:59 14:59 Intake Total 640 Balance 640 Med Orders - Current: Current Medications Acetaminophen (Acetaminophen 325 Mg Tab) 650 mg PO Q4H PRN PRN Reason: Pain Last Admin: 01/28/21 05:56 Dose: 650 mg Documented by: Benzocaine/Menthol (Benzocaine/Menthol 20%-0.5% [place] 78 Gm Cannister) 0 gm TOP ASDIRECTED PRN PRN Reason: Perineal Comfort Measure Ibuprofen (Ibuprofen 600 Mg Tab) 600 mg PO Q6H PRN PRN Reason: Mild pain or fever Last Admin: 01/28/21 01:44 Dose: 600 mg Documented by: Raine Virgen (Raine Virgen Medicated Pads 40/Jar) 1 pad TOP ASDIRECTED PRN PRN Reason: Perineal Comfort Measure Discontinued Medications Acetaminophen (Acetaminophen 325 Mg Tab) 650 mg PO Q4H PRN PRN Reason: Headache/Pain Last Admin: 01/26/21 03:32 Dose: 650 mg Documented by: Bupivacaine HCl (Bupivacaine 0.25% 10 Ml Sdv) 10 ml .ROUTE .STK-MED ONE Stop: 01/26/21 19:01 Diphenhydramine HCl (Diphenhydramine 50 Mg/Ml Sdv) 25 mg IVPUSH Q6H PRN PRN Reason: Itching Last Admin: 01/25/21 23:21 Dose: 25 mg Documented by: Diphenhydramine HCl (Diphenhydramine 50 Mg/Ml Sdv) 25 mg IVPUSH Q6H PRN PRN Reason: pruritis Ephedrine Sulfate (Ephedrine 50 Mg/Ml Sdv) 5 mg IVPUSH ASDIRECTED PRN PRN Reason: Hypotension Fentanyl (Fentanyl 100 Mcg/2 Ml Sdv) 100 mcg EPIDUR Q3H PRN PRN Reason: Pain Last Admin: 01/26/21 09:18 Dose: 100 mcg Documented by: Fentanyl/Bupivacaine HCl (Bupivacaine/Fentanyl/Ns 100 Ml Bag) 100 ml EPIDUR ASDIRECTED PRN PRN Reason: Pain Last Admin: 01/26/21 09:15 Dose: 100 ml Documented by: Lactated Ringer's (Ringers, Lactated) 1,000 mls @ 100 mls/hr IV ASDIRECTED ANTONIETA Last Admin: 01/26/21 11:09 Dose: 100 mls/hr Documented by: Oxytocin/Lactated Ringer's (Pitocin In Lr 10 Units/1,000 Ml) 10 unit in 1,000 mls @ 12 mls/hr IV TITRATE ANTONIETA; Protocol Last Titration: 01/26/21 15:00 Dose: 16.67 munits/min, 100.02 mls/hr Documented by: Oxytocin/Lactated Ringer's (Pitocin In Lr 10 Units/1,000 Ml) 10 unit in 1,000 mls @ 500 mls/hr IV .CONTINUOUS ANTONIETA Ampicillin Sodium 2 gm/ Sodium (Chloride) 100 mls @ 200 mls/hr IV ONETIME ONE Stop: 01/25/21 20:29 Last Admin: 01/25/21 20:30 Dose: 200 mls/hr Documented by: Ampicillin Sodium 1 gm/ Sodium (Chloride) 100 mls @ 200 mls/hr IV Q4H ANTONIETA Last Admin: 01/26/21 20:23 Dose: Not Given Documented by: Lidocaine HCl (Lidocaine 1% 50 Ml Mdv) 50 ml INJECT ONETIME PRN PRN Reason: Breakthrough Pain Nalbuphine HCl (Nalbuphine 10 Mg/1 Ml Vial) 10 mg IVPUSH Q2H PRN PRN Reason: Pain Last Admin: 01/26/21 08:38 Dose: 10 mg Documented by: Sodium Chloride (Sodium Chloride 0.9% 10 Ml Syringe) 10 ml FLUSH ASDIRECTED PRN PRN Reason: Keep Vein Open
== END 2021-01-28 11:30 | disposition home or self-care (01) | DRG 805 ==
LOC: JD.OB 16:39 → JD.OBCHECK 16:39 → JD.OB 17:40 → JD.OBCHECK 17:40 → JD.OB 19:04 → OBSVTOIN 01-26 13:24 → JD.OB 01-26 13:25
PROVIDERS: ADMIT Obstetrics & Gynecology; ATTEND Obstetrics & Gynecology
PROC: 3E0R3BZ Introduction of Anesthetic Agent into Spinal Canal, Percutaneous Approach (ICD-10-PCS; principal; 2021-01-26)
PROC: 10907ZC Drainage of Amniotic Fluid, Therapeutic from Products of Conception, Via Natural or Artificial Opening (ICD-10-PCS; principal; 2021-01-26)
PROC: 10E0XZZ Delivery of Products of Conception, External Approach (ICD-10-PCS; principal; 2021-01-26)
PROC: 3E033VJ Introduction of Other Hormone into Peripheral Vein, Percutaneous Approach (ICD-10-PCS; principal; 2021-01-26)
DX: O26.62 Liver and biliary tract disorders in childbirth (principal); K83.1 Obstruction of bile duct; Z37.0 Single live birth; Z3A.37 37 weeks gestation of pregnancy; Z20.822 Contact with and (suspected) exposure to COVID-19
CPT/HCPCS: 01967; 36415; 51702; 59025; 59409; 80306; 85025; 86592; A9270-GY; G0480; J0290; J1200; J2300; J2590; J3010; J3490; J7120; U0002

== ENCOUNTER 2021-05-25 20:33 | Emergency (ER) | payer MEDICAID ==
[2021-05-25] MEDS ORDERED: Sodium Chloride 0.9% 10 ML Syringe FLUSH PRN (21:16)
== END 2021-05-25 21:22 | disposition left against medical advice (07) ==
LOC: JD.ED 20:33
DX: Z53.21 Procedure and treatment not carried out due to patient leaving prior to being seen by health care provider (principal)

== ENCOUNTER 2021-08-28 19:33 | Emergency (ER) | payer SELFPAY ==
[2021-08-28] MEDS ORDERED: Acetaminophen 325 MG Tab PO ONE (20:45)
== END 2021-08-28 21:04 | disposition home or self-care (01) ==
LOC: JD.ED 19:33
DX: O99.892 Other specified diseases and conditions complicating childbirth (principal); R10.2 Pelvic and perineal pain; Z3A.18 18 weeks gestation of pregnancy; Z88.8 Allergy status to other drugs, medicaments and biological substances; Z79.899 Other long term (current) drug therapy
CPT/HCPCS: 99283; A9270

== ENCOUNTER 2021-10-01 11:12 | Emergency (ER) | payer SELFPAY ==
[2021-10-01] MEDS ORDERED: Sodium Chloride 0.9% 10 ML Syringe FLUSH PRN (11:33)
[2021-10-01] MEDS ORDERED: Ondansetron 4 MG/2 ML SDV IVPUSH ONE (11:34)
[2021-10-01] MEDS ORDERED: Alum Hydrox/Mag Hydrox/Simeth 30 ML, Lidocaine 2% 15 ML PO ONE ×2 (11:34)
[2021-10-01] MEDS ORDERED: Sodium Chloride 0.9% 1,000 ML IV ONE (11:55)
== END 2021-10-01 13:05 | disposition home or self-care (01) ==
LOC: JD.ED 11:12
DX: O99.891 Other specified diseases and conditions complicating pregnancy (principal); R12 Heartburn; O98.512 Other viral diseases complicating pregnancy, second trimester; A08.4 Viral intestinal infection, unspecified; F17.210 Nicotine dependence, cigarettes, uncomplicated; Z3A.27 27 weeks gestation of pregnancy; Z88.8 Allergy status to other drugs, medicaments and biological substances
CPT/HCPCS: 36415; 80053; 83735; 83880; 84484; 85025; 85610; 85730; 93005; 96361; 96374; 99285; A9270; J2405; J3490; J7030

== ENCOUNTER 2021-12-09 10:12 | Inpatient (IN) | payer MEDICAID ==
[~2021-12-09 10:12] MED LIST: Bupivacaine 0.25% 10 ML SDV ONE
[2021-12-09] MEDS ORDERED: diphenhydrAMINE 25 MG Cap PO PRN (11:00)
[2021-12-09] MEDS ORDERED: Nalbuphine HCl 10 MG/ 1ML Amp IVPUSH PRN (12:47)
[2021-12-09] MEDS ORDERED: Ondansetron 4 MG/2 ML SDV IVPUSH PRN (12:47)
[2021-12-09] MEDS ORDERED: Sodium Chloride 0.9% 10 ML Syringe FLUSH PRN (12:47)
[2021-12-09] MEDS ORDERED: Lactated Ringers 1,000 ML IV SCH (13:00)
[2021-12-09] MEDS ORDERED: Oxytocin/Lactated Ringers 10 UNIT/1,000 ML BAG IV SCH ×2 (13:00)
[2021-12-09] MEDS: hydrOXYzine HCl 50 MG Tab PO PRN ×2 (13:41→22:18)
[2021-12-09] MEDS ORDERED: diphenhydrAMINE 50 MG/ML SDV IVPUSH PRN (14:56)
[2021-12-09] MEDS ORDERED: Bupivacaine/fentaNYL/NS 100 ML Bag EPIDUR PRN (14:56)
[2021-12-09] MEDS ORDERED: ePHEDrine 50 MG/ML SDV IVPUSH PRN (14:56)
[2021-12-09] MEDS ORDERED: fentaNYL 100 MCG/2 ML SDV EPIDUR PRN (14:56)
[2021-12-09] MEDS ORDERED: Sodium Chloride 0.9% 10 ML Syringe FLUSH SCH (21:00)
[2021-12-10] MEDS ORDERED: Benzocaine/Menthol 20%-0.5% Spray 78 GM Cannister TOP PRN (00:04)
[2021-12-10] MEDS ORDERED: Acetaminophen 325 MG Tab PO PRN (00:04)
[2021-12-10] MEDS ORDERED: Docusate Sodium 100 MG Cap PO PRN (00:04)
[2021-12-10] MEDS ORDERED: Witch Hazel Medicated Pads 40/Jar TOP PRN (00:04)
[2021-12-10] MEDS ORDERED: diphenhydrAMINE 25 MG Cap PO PRN (02:03)
[2021-12-10] MEDS: hydrOXYzine HCl 50 MG Tab PO PRN (05:22)
[2021-12-10] MEDS ORDERED: Non-Formulary Medication 1 Each (Pnv No.95/Ferrous Fum/Folic Ac [Prenatal Tablet] 1 EACH T PO SCH (09:00)
[2021-12-10] MEDS: Ibuprofen 600 MG Tab PO PRN ×2 (09:42→18:18)
[2021-12-10] MEDS: Prenatal Multivitamin with Calcium/Folic Acid/Iron Tab PO SCH (09:44)
[2021-12-11] MEDS: hydrOXYzine HCl 50 MG Tab PO PRN ×2 (02:50→15:27)
[2021-12-11] MEDS: Ibuprofen 600 MG Tab PO PRN ×2 (02:50→15:27)
[2021-12-11] MEDS: Prenatal Multivitamin with Calcium/Folic Acid/Iron Tab PO SCH (14:52)
== END 2021-12-11 15:44 | disposition home or self-care (01) | DRG 805 ==
LOC: JD.OBCHECK 10:12 → UNDOADMOB 12:47 → JD.OBCHECK 12:47 → JD.OB 12:47 → OBSVTOIN 23:58 → INTOOBSV 23:58 → JD.OB 12-10 00:18
PROVIDERS: ADMIT Obstetrics & Gynecology; ATTEND Obstetrics & Gynecology
PROC: 10E0XZZ Delivery of Products of Conception, External Approach (ICD-10-PCS; principal; 2021-12-09)
PROC: 10907ZC Drainage of Amniotic Fluid, Therapeutic from Products of Conception, Via Natural or Artificial Opening (ICD-10-PCS; 2021-12-09)
PROC: 3E033VJ Introduction of Other Hormone into Peripheral Vein, Percutaneous Approach (ICD-10-PCS; 2021-12-09)
PROC: 3E0R3BZ Introduction of Anesthetic Agent into Spinal Canal, Percutaneous Approach (ICD-10-PCS; 2021-12-09)
DX: O26.62 Liver and biliary tract disorders in childbirth (principal); K83.1 Obstruction of bile duct; Z37.0 Single live birth; Z3A.36 36 weeks gestation of pregnancy; O76 Abnormality in fetal heart rate and rhythm complicating labor and delivery; O69.1XX0 Labor and delivery complicated by cord around neck, with compression, not applicable or unspecified; O26.893 Other specified pregnancy related conditions, third trimester
CPT/HCPCS: 36415; 51702; 59025; 59409; 80053; 85025; 86592; A9270-GY; J2590; J3010; J3490; J7120

== ENCOUNTER 2023-03-22 09:23 | Emergency (ER) | payer MEDICAID | END 2023-03-22 11:45 | disposition home or self-care (01) | LOC: JD.ED 09:23 | DX: O00.01 Abdominal pregnancy with intrauterine pregnancy (principal); O99.891 Other specified diseases and conditions complicating pregnancy; R10.31 Right lower quadrant pain; R10.32 Left lower quadrant pain; Z3A.01 Less than 8 weeks gestation of pregnancy | CPT/HCPCS: 36415; 76817; 76817-26; 76830; 84702; 99283; 99284 ==